=== PATIENT | male | born 1990 | race Caucasian/White ===

== ENCOUNTER 2023-06-22 14:46 | Outpatient (CLI) | payer BC, SELFPAY ==
--- NOTE | ~2023-06-22 | MR_ITS ---
EXAMINATION: MR knee LT wo con DATE: 06/22/2023 15:24 INDICATION: Acute onset left knee pain TECHNIQUE: Magnetic resonance imaging (MRI) of the left knee was performed without intravenous contra st. Sequences included coronal PD-weighted FSE, coronal PD-weighted FS FSE, sagittal T2-weighted FSE , sagittal PD-weighted FS FSE and axial PD weighted fat saturated FSE. COMPARISON: None. FINDINGS: Medial compartment: Complex tear involving the body and posterior horn of the medial meniscus. There is a meniscal flap a rising from near the posterior root which is flipped cephalad and posterior positioned along the medi al margin of the posterior cruciate ligament. There is a 2.0 x 0.8 x 0.3 cm low signal intensity disp laced meniscal fragment most likely arising from the meniscal body which extends from medial to later al across the midline in the recess anterior to the anterior cruciate ligament. There is an additiona l longitudinal horizontal tear plane extending along the remaining nondisplaced meniscal body and med ial side of the posterior horn. Small region of mild partial-thickness chondral fissuring along the l ateral margin of the junction of the anterior and central portions of the weightbearing medial femora l condyle. Remaining cartilage in the medial compartment is normal. Lateral compartment: Lateral meniscus is normal. Partial-thickness chondral ulceration along the posterior rim of the late ral tibial plateau. Remaining cartilage the lateral compartment is normal. Patellofemoral compartment: Articular cartilage is normal. Ligaments and tendons: Posterior cruciate ligament is normal. Postoperative change of prior anterior cruciate ligament recon struction utilizing a patellar tendon autograft. The graft remains intact. Secondary mild patellar te ndinopathy with sagittal oriented graft harvest site with chronic osteotomy defect at the anterior ti bial tuberosity and heterotopic ossification at the margins of the patellar osteotomy site. There is suggestion of a longitudinal split tear extending along the proximal aspect of the medial collateral ligament without surrounding edema to suggest acute injury. The fibular collateral ligament complex i s normal. The visualized medial and lateral hamstring tendons as well as the iliotibial band are norm al. Fluid: Small left knee joint effusion with mild synovitis at the suprapatellar pouch. Moderate size Laboy's cyst. Osseous/other: Normal marrow signal. No fracture or pathologic marrow replacing process. IMPRESSION: 1. Intact anterior cruciate ligament reconstruction with patellar tendon autograft. 2. Complex tear of the body and posterior horn of the medial meniscus with anteriorly displaced large meniscal fragment and reflected meniscal flap arising from the posterior horn. 3. 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 4. Small left knee joint effusion and moderate-sized Laboy's cyst. Reviewed, dictated and finalized at location [facility] IMPRESSION: 1. Intact anterior cruciate ligament reconstruction with patellar tendon autogr aft. 2. Complex tear of the body and posterior horn of the medial meniscus with ante riorly displaced large meniscal fragment and reflected meniscal flap arising fr om the posterior horn. 3. 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 4. Small left knee joint effusion and moderate-sized Laboy's cyst.
== END 2023-06-22 14:47 ==
PROVIDERS: PCP Physician Assistant; Visit Provider Physician Assistant
DX: M25.462 Effusion, left knee (principal); S83.232A Complex tear of medial meniscus, current injury, left knee, initial encounter; X58.XXXA Exposure to other specified factors, initial encounter
CPT/HCPCS: 73721